=== PATIENT | female | born 1980 | race Caucasian/White ===

== ENCOUNTER 2016-02-20 13:36 | Inpatient (IN) | payer OTHER ==
[~2016-02-20] VITALS: Ht 157.5 cm; Wt 76.1 kg
[2016-02-20] MEDS ORDERED: LACTATED RINGER'S 1,000 ML IV STA (14:39)
[2016-02-20] MEDS ORDERED: TERBUTALINE 1 MG/ML INJ SC PRN (15:00)
--- NOTE | 2016-02-20 15:44 | RADRPT ---
PROCEDURE: US OB CLINICAL INDICATION: UCS, contractions TECHNIQUE: Multiple sonographic images of the pelvis were obtained. The images were reviewed on a PACS workstation. COMPARISON: None FINDINGS: The cervix is closed with a length of 4.6 cm. There is a single viable intrauterine gestation. Cardiac activity is present with 134 beats per minute. There is a vertex presentation. The placenta is posterior. There is no evidence for an abruption or placenta previa. There is a subjectively normal amount of amniotic fluid. Measurements were made in order to determine age. The results are as follows (cm): BPD =6.97 HC =26.00 AC =25.17 FL =5.25 Estimated gestational age by ultrasound of approximately 28 weeks, 3 days. The estimated date of delivery by ultrasound is 05/11/2016. Reported gestational age by LMP of approximately 29 weeks , 5 days. The reported date of delivery by LMP is 05/02/2016. EFW = 1269 grams (10th percentile) IMPRESSION: Single viable intrauterine gestation of approximately 28 weeks, 3 days . The estimated date of delivery is 05/11/2016 . Dating by ultrasound is within 9 days of dating by LMP. Estimated weight is 1269 grams which is in the 10th percentile. RPTAT: EE Physician Daniele Date Time Electronically viewed and signed by Physician Daniele on 02/20/2016 15:44 /
[2016-02-20] MEDS ORDERED: LACTATED RINGER'S 1,000 ML IV SCH (15:45)
[2016-02-20 15:53] LABS: BASOPHIL # 0.1 10^3/ul (0.0-0.1); BASOPHILS % 0.5 % (0.0-2.0); EOSINOPHILS # 0.1 10^3/ul (0.0-0.5); EOSINOPHILS % 0.5 % (0.0-7.0); HEMATOCRIT 36.7 % (37.0-47.0); HEMOGLOBIN 12.4 g/dl (12.0-16.0); LYMPHOCYTES # 3.3 10^3/ul (0.8-2.9); LYMPHOCYTES % 27.4 % (15.0-51.0); MEAN CORPUSCULAR HEMOGLOBIN 31.7 pg (29.0-33.0); MEAN CORPUSCULAR HGB CONC 33.7 g/dl (32.0-37.0); MEAN CORPUSCULAR VOLUME 94.3 fl (82.0-101.0); MEAN PLATELET VOLUME 8.4 fl (7.4-10.4); MONOCYTE # 0.5 10^3/ul (0.3-0.9); NEUTROPHIL # 8.2 10^3/ul (1.6-7.5); NEUTROPHILS % 67.6 % (39.0-77.0); PLATELET COUNT 291 10^3/UL (140-440); RED BLOOD COUNT 3.89 10^6/ul (4.20-5.40); RED CELL DISTRIBUTION WIDTH 13.7 % (11.5-14.5); UNCORRECTED WBC 12.2 10^3/ul (4.8-10.8); WHITE BLOOD COUNT 12.2 10^3/ul (4.8-10.8)
[2016-02-20 15:54] LABS: CONDITION 1
[2016-02-20 16:03] LABS: ADD UMIC NO; URINE BILIRUBIN (Dip) NEGATIVE (NEGATIVE); URINE BLOOD (Dip) NEGATIVE (NEGATIVE); URINE COLOR LT. YELLOW (YELLOW); URINE GLUCOSE (Dip) NEGATIVE (NEGATIVE); URINE KETONES (Dip) 3+ (NEGATIVE); URINE LEUKOCYTE ESTERASE (Dip) NEGATIVE (NEGATIVE); URINE NITRITE (Dip) NEGATIVE (NEGATIVE); URINE TOTAL PROTEIN (Dip) NEGATIVE (NEGATIVE); URINE UROBILINOGEN (Dip) 0.2 E.U./dL (0.1-1.0)
[2016-02-20 17:07] VITALS: Ht 157.5 cm; Wt 76.1 kg
[2016-02-20 17:09] VITALS: BP 104/73; PULSE 88; RESP 19
[2016-02-20] MEDS ORDERED: PRENAT PO (17:11)
[2016-02-20] MEDS ORDERED: FERR325C PO (17:12)
[2016-02-20] MEDS ORDERED: BUTORPHANOL 2 MG INJ IV STA (17:34)
[2016-02-20] MEDS ORDERED: DOCUSATE SODIUM 100 MG CAP PO PRN (20:30)
--- NOTE | 2016-02-20 21:05 | TRIAGE ---
OB Triage Datetime Report Generated by CPN: 02/20/2016 21:05 Datetime: 02/20/2016 20:40 Stage of : OB Triage Labor Evaluation Frequency: 2-11 Monitor Mode: External Duration (sec)2399: 40-60 Quality: Mild Resting Tone [place]: Relaxed Contraction Comments: Irritability noted Heart Rate FHR Baseline Rate: 140 FHR Baseline Changes: No Baseline Change Variability: Moderate 6-25 bpm Accelerations: 15X15 Decelerations: Variable Category: Category I Comments: Appropriate for ga Pain Assessment Pain Scale: 6 Pain Presence: Intermittent Pain Type: Cramping Pain Location: Abdomen; Back Pain Goal: 0 Datetime: 02/20/2016 20:35 Stage of : OB Triage Datetime: 02/20/2016 19:56 Stage of : OB Triage Datetime: 02/20/2016 19:30 Stage of : OB Triage Labor Evaluation Frequency: x6 Monitor Mode: External Duration (sec)2399: 40-50 Quality: Mild Resting Tone [place]: Relaxed Heart Rate FHR Baseline Rate: 130 Monitor Mode: External US FHR Baseline Changes: No Baseline Change Variability: Moderate 6-25 bpm Accelerations: 15X15 Decelerations: Variable Category: Category I Comments: Appropriate for ga Pain Assessment Pain Scale: 5 Pain Presence: Intermittent Pain Type: Cramping Pain Location: Abdomen; Back Pain Goal: 0 Pain Assessment Comments: pt states she is still feeling pain, felt sleepy with medicine, but kept feeling pain Datetime: 02/20/2016 19:28 Stage of : OB Triage Datetime: 02/20/2016 19:26 Stage of : OB Triage Datetime: 02/20/2016 18:30 Stage of : OB Triage Labor Evaluation Frequency: X6 Monitor Mode: External Duration (sec)2399: 40-70 Quality: Mild Resting Tone [place]: Relaxed Heart Rate FHR Baseline Rate: 130 Monitor Mode: External US FHR Baseline Changes: No Baseline Change Variability: Moderate 6-25 bpm Accelerations: 15X15 Decelerations: Variable Category: Category I Datetime: 02/20/2016 17:59 Stage of : OB Triage Datetime: 02/20/2016 17:30 Stage of : OB Triage Labor Evaluation Frequency: x6 Monitor Mode: External Duration (sec)2399: 40-60 Quality: Mild Resting Tone [place]: Relaxed Heart Rate FHR Baseline Rate: 140 Monitor Mode: External US FHR Baseline Changes: No Baseline Change Variability: Moderate 6-25 bpm Accelerations: 15X15 Decelerations: Variable Category: Category I Datetime: 02/20/2016 17:21 Stage of : OB Triage Datetime: 02/20/2016 17:09 Stage of : OB Triage Datetime: 02/20/2016 17:06 Stage of : OB Triage Datetime: 02/20/2016 16:30 Stage of : OB Triage Labor Evaluation Frequency: X5 Monitor Mode: External Duration (sec)2399: 40-50 Quality: Mild Resting Tone [place]: Relaxed Contraction Comments: Irritability noted Heart Rate FHR Baseline Rate: 140 Monitor Mode: External US FHR Baseline Changes: No Baseline Change Variability: Moderate 6-25 bpm Accelerations: 15X15 Decelerations: None Category: Category I Datetime: 02/20/2016 16:06 Stage of : OB Triage Labor Evaluation Frequency: 3-8 Monitor Mode: External Duration (sec)2399: 40-60 Quality: Mild Resting Tone [place]: Relaxed Heart Rate FHR Baseline Rate: 150 Variability: Moderate 6-25 bpm Accelerations: 15X15 Decelerations: Variable Category: Category I Comments: Appropriate for ga Pain Assessment Pain Scale: 6 Pain Presence: Intermittent Pain Type: Cramping Pain Location: Abdomen Pain Assessment Comments: Pt states pain level is unchanged. Datetime: 02/20/2016 15:31 Stage of : OB Triage Datetime: 02/20/2016 15:26 Comments: U/S started Datetime: 02/20/2016 15:20 Stage of : OB Triage Labor Evaluation Frequency: occasional Monitor Mode: External Duration (sec)2399: 40 Quality: Mild Resting Tone [place]: Relaxed Contraction Comments: irritability noted Heart Rate FHR Baseline Rate: 135 Monitor Mode: External US Variability: Moderate 6-25 bpm Accelerations: 15X15 Decelerations: None Category: Category I Datetime: 02/20/2016 15:00 Stage of : OB Triage Labor Evaluation Frequency: x4 Monitor Mode: External Duration (sec)2399: 40 Quality: Mild Resting Tone [place]: Relaxed Contraction Comments: irritability noted Heart Rate FHR Baseline Rate: 135 Variability: Moderate 6-25 bpm Accelerations: 15X15 Decelerations: Variable Category: Category I Datetime: 02/20/2016 14:32 Stage of : OB Triage Datetime: 02/20/2016 14:28 Assessment Type: Triage Maternal Assessment Level of Consciousness: Fully Conscious DTR's/Clonus: DTRs 1+; No Clonus Headache: Denies Blurred Vision: No Respiratory Effort: Unlabored Breath Sounds, Left: Clear and Equal Breath Sounds, Right: Clear and Equal Nausea/Vomiting: Denies RUQ Epigastric Pain: Denies Lower Extremities Edema: None Degree: None Upper Extremities Edema: None Degree: None Facial Edema: None Fall Risk Assessment History of Falling: (0) No Secondary Diagnosis: (15) Yes (Annotations: c/s x 2) Ambulatory Aid: (0) Bedrest/Nurse Assist IV Therapy: (0) No Gait: (0) Normal/Bedrest/Immobile Mental Status: (0) Oriented to Own Ability Fall Score: 15 Fall Risk Score Definition: No Risk: No action required Datetime: 02/20/2016 14:23 Stage of : OB Triage Monitor Mode: External Datetime: 02/20/2016 14:21 Stage of : OB Triage Monitor Mode: External US Datetime: 02/20/2016 13:39 EGA: 29.5 Datetime: 02/20/2016 13:35 Time of Arrival: 02/20/2016 13:30 Arrived By: Wheelchair Arrived From: Office Chief Complaint: Sent from clinic for r/o ptl Movement: Decreased Contractions: Regular Time Contractions Began: 02/19/2016 13:00 Rupture of Membranes: Denies Vaginal Bleeding: None Vaginal Discharge: Denies Recent Sexual Intercouse: Denies Abdominal Trauma: Not Applicable Patient Complaints: Contractions Time Provider Notified: 02/20/2016 13:45 Provider Notified: PAMELLA Initial Plan: VS, EFM, CL, EFW, TERB, IV HYDRATION, UA, CBC
[2016-02-20] MEDS: LACTATED RINGER'S 1,000 ML IV SCH (21:48)
[2016-02-21] MEDS: LACTATED RINGER'S 1,000 ML IV SCH ×4 (05:55→16:35)
[2016-02-21] MEDS: ACETAMINOPHEN 325 MG TAB PO PRN ×2 (08:26→16:35)
[2016-02-21] MEDS ORDERED: MAGNESIUM SULFATE 4 GM/100 ML 100 ML ONE (09:24)
[2016-02-21] MEDS ORDERED: CA GLUCONATE (GM) 10% 10ML INJ IV PRN (09:30)
[2016-02-21] MEDS ORDERED: MAGNESIUM SULFATE 4 GM/100 ML 100 ML IV ONE (09:30)
[2016-02-21] MEDS: MULTIVIT/MIN/FOLATE/IRON/PREN TAB PO SCH (09:39)
[2016-02-21] MEDS: FERROUS SULFATE (EC) 325 MG TAB PO SCH (09:39)
[2016-02-21] MEDS: BETAMET NA PHOS/AC(6 MG/ML) 5ML INJ IM SCH (09:55)
[2016-02-21] MEDS: MAGNESIUM SULFATE 20 GM/500 ML 500 ML IV SCH ×2 (09:56→20:53)
[2016-02-21 10:44] LABS: BASOPHILS % 0.3 % (0.0-2.0); EOSINOPHILS # 0.1 10^3/ul (0.0-0.5); EOSINOPHILS % 0.6 % (0.0-7.0); HEMATOCRIT 34.9 % (37.0-47.0); LYMPHOCYTES # 1.9 10^3/ul (0.8-2.9); LYMPHOCYTES % 18.4 % (15.0-51.0); MEAN CORPUSCULAR HEMOGLOBIN 32.1 pg (29.0-33.0); MEAN CORPUSCULAR HGB CONC 34.3 g/dl (32.0-37.0); MEAN CORPUSCULAR VOLUME 93.6 fl (82.0-101.0); MONOCYTE # 0.5 10^3/ul (0.3-0.9); MONOCYTES % 4.7 % (0.0-11.0); NEUTROPHIL # 7.8 10^3/ul (1.6-7.5); PLATELET COUNT 286 10^3/UL (140-440); RED BLOOD COUNT 3.72 10^6/ul (4.20-5.40); RED CELL DISTRIBUTION WIDTH 13.6 % (11.5-14.5); UNCORRECTED WBC 10.3 10^3/ul (4.8-10.8); WHITE BLOOD COUNT 10.3 10^3/ul (4.8-10.8)
[2016-02-21 10:51] LABS: CONDITION 1
[2016-02-21 10:53] LABS: INR 0.95; PROTIME 12.7 Sec (12.2-14.2)
--- NOTE | 2016-02-21 13:11 | HP ---
Date/Time of Note Date/Time of Note DATE: 02/21/16 TIME: 12:55 OB - History Hx of Present Free Text/Dictation This is a 35 years old Kiswahili female 2 para 2 yariel of 2 previous C- section admitted to [facility] at 29 weeks 57 days with a EDC of May 02 chief complaint of lower abdominal pain and contractions, on admission patient described her pain is constant but later on she is describing her pain as cramping which comes and goes' reviewing her heart tracing and contraction it seems she has some irregular contractions we will admit the patient to rule out labor a neonatology consult and perinatology consult requested. Currently she is on magnesium sulfate 2 gm every hour and close observation for cervical change Estimated Due Date: May 02, 2016 : 3 Para: 2 Care: Limited Care Ultrasounds: Other (not known) Obstetrical Complications: None Medical Complications: None Past Family/Social History * Past Medical, Surgical, Family and Obstetric Histories reviewed from chart. Rubella: immune RPR/VDRL: Negative OB Admission Exam Vital Signs Vital Signs Vital Signs Date Time Temp Pulse Resp B/P Pulse Ox O2 Delivery O2 Flow Rate FiO2 02/20/16 17:09 97.7 88 19 104/73 Last 72 hours Lab Results CBC & BMP 02/20/16 15:05 02/21/16 10:30 KASANDRA CAN MD Feb 21, 2016 13:08
--- NOTE | 2016-02-21 13:55 | PERINOTE ---
Date/Time of Note Date/Time of Note DATE: 02/21/16 TIME: 13:36 Assessment/Recommendations Assessment: labor Recommendations: Would continue with magnesium sulfate for a 24-48 hour course, then D/C Consider urine culture if the patient continues to have pain D/C home if contractions and pain do not recur OB Subjective Free Text/Dictaton Patient is a 35 year old admitted for abdominal pain thought to be due to labor. Patient reports abdominal pain, now reported to be more suprapubic than periumbilical. She states that this is episodic and is similar to her labor pains in prior pregnancies. She reports that the pain is less with magnesium sulfate. HD# 2 IUP @ [id number] Current Medications Current Medications Terbutaline Sulfate (Brethine) 0.25 mg Q30MIN PRN SC UCS Last administered on 02/20/16at 15:05; Admin Dose 0.25 MG; Start 02/20/16 at 15:00 Prenat Multivit/ Desha/Iron/Folic Ac ( S) 1 tab DAILY PO Last administered on 02/21/16at 09:39; Admin Dose 1 TAB; Start 02/21/16 at 09:00 Ferrous Sulfate (Ferrous Sulfate (Ec)) 325 mg DAILY PO Last administered on 09:39; Admin Dose 325 MG; Start 02/21/16 at 09:00 Docusate Sodium (Colace) 100 mg DAILY PRN PO CONSTIPATION; Start 02/20/16 at 20:30 Acetaminophen 650 mg 650 mg Q4H PRN PO PAIN AND OR ELEVATED TEMP Last administered on 02/21/16at 08:26; Admin Dose 650 MG; Start 02/20/16 at 20:30 Lactated Ringer's 1,000 ml @ 75 mls/hr [id number] IV Last administered on 09:39; Admin Dose 75 MLS/HR; Start 02/21/16 at 09:19 Magnesium Sulfate (Magnesium Sulfate 20 Gm/500 ml) 500 ml @ 50 mls/hr Q10H IV Last administered on 02/21/16 09:56; Admin Dose 50 MLS/HR; Start 02/21/16 at 09:19 Betamethasone Acet/Betameth SodPhos (Celestone Soluspan) 12 mg Q24H IM Last administered on 12/31/16at 09:55; Admin Dose 12 MG; Start 02/21/16 at 09:30; Stop 02/22/16 at 09:31 Calcium Gluconate (Ca Gluc) 1 gm ONCE PRN IV FOR MAGNESIUM TOXICITY; Start at 09:30 Past Medical History Medical History: no pertinent history Surgical History: appendectomy SUPPORT SERVICES REP History: no pertinent SUPPORT SERVICES REP history Para: 2 (two deliveries) : 3 LMP (Females 10-50): Family History Significant Family History: diabetes Social History Smoker: non-smoker Alcohol: none Drugs: none OB Admission Exam Physical Exam Vitals: Vital Signs Date Time Temp Pulse Resp B/P Pulse Ox O2 Delivery O2 Flow Rate FiO2 02/20/16 17:09 97.7 88 19 104/73 02/21/16 117 104/65 Heart: Rhythm Normal Lungs: Clear Abdomen: WNL Reflexes: Normal Heart Rate: 130's Accelerations: Accelerations Present Decelerations: No Decelerations Varibility: Moderate Contractions on Admission: None Last 72 hours Lab Results CBC & BMP 02/20/16 15:05 02/21/16 10:30 Copies To: CC: KASANDRA CAN MD, MARIE H MD Feb 21, 2016 13:52
[2016-02-22] MEDS: LACTATED RINGER'S 1,000 ML IV SCH (04:45)
[2016-02-22] MEDS: MAGNESIUM SULFATE 20 GM/500 ML 500 ML IV SCH (06:49)
[2016-02-22] MEDS: ACETAMINOPHEN 325 MG TAB PO PRN ×2 (07:37→11:38)
[2016-02-22] MEDS: FERROUS SULFATE (EC) 325 MG TAB PO SCH (09:45)
[2016-02-22] MEDS: MULTIVIT/MIN/FOLATE/IRON/PREN TAB PO SCH (09:45)
[2016-02-22] MEDS: BETAMET NA PHOS/AC(6 MG/ML) 5ML INJ IM SCH (09:46)
[2016-02-22] MEDS ORDERED: AZITHROMYCIN 250 MG TAB PO ONE (14:30)
--- NOTE | 2016-02-22 14:30 | PN ---
Date/Time of Note Date/Time of Note DATE: 02/22/16 TIME: 14:16 OB Subjective Subjective Subjective Afebrile vital sign is stable no more uterine contraction noted magnesium sulfate stopped she has been complaining of frontal headache suspected sinusitis pain resolves with Tylenol , magnesium sulfate stopped, amoxicillin 500 mg 3 times a day starting today KASANDRA CAN MD Feb 22, 2016 14:30
[2016-02-22] MEDS: AMOXICILLIN 500 MG CAP PO SCH ×2 (15:50→18:00)
[2016-02-23] MEDS: AMOXICILLIN 500 MG CAP PO SCH ×3 (00:16→12:35)
[2016-02-23] MEDS ORDERED: AZITHROMYCIN 250 MG TAB PO SCH (09:00)
[2016-02-23] MEDS: MULTIVIT/MIN/FOLATE/IRON/PREN TAB PO SCH (09:16)
[2016-02-23] MEDS: FERROUS SULFATE (EC) 325 MG TAB PO SCH (09:16)
--- NOTE | 2016-02-23 14:21 | DS ---
Date/Time of Note Date/Time of Note DATE: 02/23/16 TIME: 14:12 Obstetrical Discharge Record Final Diagnosis Final Diagnosis: not delivered Complications Labor Augmentation: No Induction: No Tocolytics: Magnesium Sulfate Rupture of Membranes: No Condition on Discharge Physical Assessment Last Vitals: 35 years old female who was admitted for possible labor with a history of 2 previous and complain of headache on admission laborist on-call suspected possible PIH started her on magnesium sulfate but later on all the workup for PIH was negative magnesium sulfate discontinued patient received steroids, no more contraction or uterine irritability, see perinatology report at this time patient has no complain of headache or uterine contraction she is being discharged home with recommendation of follow-up at the clinic in 3-4 days Current Medications Medications (Trade) Dose Ordered Sig/Alejandro Route PRN Reason Start Time Stop Time Status Last Admin Dose Admin Terbutaline Sulfate 0.25 mg 0.25 mg Q30MIN PRN SC UCS 02/20/16 15:00 02/20/16 15:05 Lactated Ringer's 1,000 ml @ 1,000 mls/hr Q1H STAT IV 02/20/16 14:39 02/20/16 15:38 DC 02/20/16 15:07 Lactated Ringer's (Lr) 1,000 ml @ 125 mls/hr Q8H IV 02/20/16 15:45 02/20/16 20:25 DC 02/20/16 16:07 Butorphanol Tartrate 2 mg 2 mg ONCE STAT IV 02/20/16 17:34 02/20/16 17:37 DC 02/20/16 17:53 Lactated Ringer's (Lr) 1,000 ml @ 125 mls/hr Q8H IV 02/20/16 20:16 02/21/16 13:07 DC 02/21/16 05:55 Prenat Multivit/ Stitcher Standard Machine/Iron/Folic Ac ( S) 1 tab DAILY PO 02/21/16 09:00 02/23/16 09:16 Ferrous Sulfate (Ferrous Sulfate (Ec)) 325 mg DAILY PO 02/21/16 09:00 02/23/16 09:16 Docusate Sodium (Colace) 100 mg DAILY PRN PO CONSTIPATION 02/20/16 20:30 Acetaminophen 650 mg 650 mg Q4H PRN PO PAIN AND OR ELEVATED TEMP 02/20/16 20:30 02/22/16 11:38 Lactated Ringer's 1,000 ml @ 75 mls/hr [id number] IV 02/21/16 09:19 02/22/16 14:52 DC 02/22/16 04:45 Magnesium Sulfate 100 ml @ 200 mls/hr ONCE ONCE IV 02/21/16 09:30 02/21/16 09:59 DC 02/21/16 09:39 Magnesium Sulfate (Magnesium Sulfate 20 Gm/500 ml) 500 ml @ 50 mls/hr Q10H IV 02/21/16 09:19 02/22/16 14:11 DC 02/22/16 06:49 Betamethasone Acet/Betameth SodPhos (Celestone Soluspan) 12 mg Q24H IM 02/21/16 09:30 02/22/16 09:31 DC 02/22/16 09:46 Calcium Gluconate 1 gm 1 gm ONCE PRN IV FOR MAGNESIUM TOXICITY 02/21/16 09:30 Magnesium Sulfate (Magnesium Sulfate 4 Gm/100 ml) 100 ml @ ud STK-MED ONCE .ROUTE 02/21/16 09:24 02/21/16 09:25 DC Azithromycin (Zithromax) 500 mg ONCE ONCE PO 02/22/16 14:30 02/22/16 14:31 DC 02/22/16 15:50 Azithromycin (Zithromax) 250 mg DAILY PO 02/23/16 09:00 02/23/16 09:16 Amoxicillin (Amoxicillin) 500 mg Q6 PO 02/22/16 15:00 02/23/16 12:35 Voiding: Yes Bowel Movement: Yes Breast: Soft, non-tender Calf Tenderness: No Patient Condition: Good KASANDRA CAN MD Feb 23, 2016 14:21
--- NOTE | 2016-02-23 14:26 | PD.PPDC ---
DIRECTOR OF DIGITAL PLATFORMS Discharge Instruction Condition Patient Condition: Good Diet Diet: Resume Regular Diet Activity/Restrictions Activity: Bedrest May be up to bathroom May be up for meals May Shower Restrictions: No Exercising No Lifting No Driving No Sexual Activity Nothing in the Vagina No [place] No Tampons, douche Follow-up Follow-up with Physician: 3, Day/Days Return to clinic for OB Instructions: Headache KASANDRA CAN MD Feb 23, 2016 14:26
== END 2016-02-23 15:06 | disposition home or self-care (01) | DRG 780 ==
LOC: OBT 13:36 → L-D 13:37 → OBG 20:00 → OBT 20:00
PROVIDERS: ADMIT Obstetrics & Gynecology; ATTEND Obstetrics & Gynecology
DX: O47.03 False labor before 37 completed weeks of gestation, third trimester (principal); O09.523 Supervision of elderly multigravida, third trimester; Z3A.29 29 weeks gestation of pregnancy
CPT/HCPCS: 36415; 76815; 76817; 81003; 83735; 85025; 85610; 85730; 86592; 86900; 86901; 87086; 96360; 96361; 96372; 96375; G0463; J0702; J3105; J3475; J7120

== ENCOUNTER 2016-03-22 14:02 | Outpatient (CLI) | payer OTHER ==
[~2016-03-22] VITALS: Ht 160 cm; Wt 78.2 kg
[~2016-03-22 14:02] MED LIST: FERR325C PO; PRENAT PO
[2016-03-22 14:22] VITALS: BP 118/61; PULSE 95; RESP 18; Ht 160 cm; Wt 78.2 kg
--- NOTE | 2016-03-22 15:51 | RADRPT ---
PROCEDURE: US OB. CLINICAL INDICATION: Size and dates , labor TECHNIQUE: Multiple sonographic images of the pelvis and gravid uterus were obtained. The images were reviewed on a PACS workstation. COMPARISON: 02/20/2016 FINDINGS: There is a single viable intrauterine gestation. Cardiac activity is present with 143 beats per min cristel. There is a breech presentation. The placenta is posterior. There is no evidence for an abruption or placenta previa. Measurements were made in order to determine age. The results are as follows: BPD =8.3 cm HC =31 cm AC =29.6 cm FL =6.5 cm Estimated gestational age of approximately 33 weeks and 6 days based on ultrasound measurements. Clinical age: 34 weeks and 1 day. The estimated date of delivery is 05/04/16, based on ultrasound measurements. The EFW = 2250 g, 30.3%, based on LMP age. RPTAT: AA IMPRESSION: Single viable intrauterine gestation of approximately 33 weeks and 6 days based on ultrasound measu rements. .Ian Porter MD, Date Time Electronically viewed and signed by .Ian Porter MD, on 03/22/2016 15:41 .S/
--- NOTE | 2016-03-22 15:54 | RADRPT ---
PROCEDURE: OB ultrasound for biophysical profile CLINICAL INDICATION: labor. Biophysical profile. . TECHNIQUE: Multiple sonographic images of the pelvis were obtained. Transabdominal view of the gr avid uterus are available for review. The images were reviewed on a PACS workstation. COMPARISON: None FINDINGS: breathing movement = 2/2 tone = 2/2 motion = 2/2 YOLI = 2/2 Single intrauterine gestation is identified in breech position. heart rate is 136 bpm. Placen ta is posterior without evidence for abruption or previa. YOLI measures 14.4 cm, within normal limit s. IMPRESSION: 1. Single live intrauterine gestation. 2. Biophysical profile = 8/8. 3. YOLI = 14.4 cm. 4. Breech presentation. RPTAT: GG .aKrl Malik MD, Date Time Electronically viewed and signed by .Karl Malik MD, on 03/22/2016 15:53 .R/
[2016-03-22 16:02] LABS: ADD UMIC YES; URINE BILIRUBIN (Dip) NEGATIVE (NEGATIVE); URINE BLOOD (Dip) NEGATIVE (NEGATIVE); URINE COLOR YELLOW (YELLOW); URINE GLUCOSE (Dip) NEGATIVE (NEGATIVE); URINE KETONES (Dip) 15 (NEGATIVE); URINE LEUKOCYTE ESTERASE (Dip) TRACE (NEGATIVE); URINE NITRITE (Dip) NEGATIVE (NEGATIVE); URINE TOTAL PROTEIN (Dip) NEGATIVE (NEGATIVE); URINE UROBILINOGEN (Dip) 0.2 E.U./dL (0.1-1.0)
[2016-03-22 16:15] LABS: BACTERIA,URINE MANY; SQUAMOUS EPITHELIAL CELL,UR MANY; URINE RBCS 0-2 /HPF (0)
[2016-03-22] MEDS ORDERED: TERBUTALINE 1 MG/ML INJ SC ONE (18:00)
[2016-03-22] MEDS ORDERED: LACTATED RINGER'S 1,000 ML IV* STA (18:09)
--- NOTE | 2016-03-22 21:41 | TRIAGE ---
OB Triage Datetime Report Generated by CPN: 03/22/2016 21:39 Datetime: 03/22/2016 19:00 Stage of : OB Triage Labor Evaluation Frequency: 0 Monitor Mode: External Duration (sec)2399: 0 Resting Tone [place]: Relaxed Heart Rate FHR Baseline Rate: 150 Monitor Mode: External US FHR Baseline Changes: No Baseline Change Variability: Moderate 6-25 bpm Accelerations: 10X10 Decelerations: None Category: Category I Pain Assessment Pain Scale: 0 Pain Presence: None/Denies Pain Type: N/A Pain Goal: 0 Pain Relief Measures: Pain Medication Given Membrane Status: Intact Datetime: 03/22/2016 18:56 Labor Evaluation Frequency: 0 Monitor Mode: External Duration (sec)2399: 0 Pattern: Normal: <= 5 Contractions in 10 Minutes Resting Tone [place]: Relaxed Heart Rate FHR Baseline Rate: 150 Monitor Mode: External US FHR Baseline Changes: No Baseline Change Variability: Moderate 6-25 bpm Accelerations: 15X15 Decelerations: None Category: Category I Membrane Status: Intact Datetime: 03/22/2016 17:48 Labor Evaluation Frequency: 0 Monitor Mode: External Duration (sec)2399: 0 Resting Tone [place]: Relaxed Heart Rate FHR Baseline Rate: 120 Monitor Mode: External US FHR Baseline Changes: No Baseline Change Variability: Absent - Undetectable Accelerations: 15X15 Decelerations: None Category: Category I Membrane Status: Intact Datetime: 03/22/2016 17:23 Labor Evaluation Frequency: IRRIATABILITY Monitor Mode: External Duration (sec)2399: 50-60 Resting Tone [place]: Relaxed Heart Rate FHR Baseline Rate: 135 Monitor Mode: External US FHR Baseline Changes: No Baseline Change Variability: Moderate 6-25 bpm Accelerations: 15X15 Decelerations: None Category: Category I Membrane Status: Intact Datetime: 03/22/2016 17:04 Stage of : OB Triage Vaginal Exam Dilatation (cms): 0.0 Effacement (%): 50 Station: -3 Exam By: DR CAN Vaginal Bleeding: None Cervix, Consistency: Firm Cervix, Position: Posterior Presentation 'A': Unable to Assess Lie 'A': Unable to Assess Datetime: 03/22/2016 16:35 Labor Evaluation Frequency: X2 Monitor Mode: External Duration (sec)2399: 50-60 Quality: Mild Pattern: Normal: <= 5 Contractions in 10 Minutes Resting Tone [place]: Relaxed Heart Rate FHR Baseline Rate: 135 Monitor Mode: External US FHR Baseline Changes: No Baseline Change Variability: Moderate 6-25 bpm Accelerations: 15X15 Decelerations: None Category: Category I Datetime: 03/22/2016 16:04 Labor Evaluation Frequency: 0 Monitor Mode: External Duration (sec)2399: 0 Resting Tone [place]: Relaxed Heart Rate FHR Baseline Rate: 120 Monitor Mode: External US FHR Baseline Changes: No Baseline Change Variability: Moderate 6-25 bpm Accelerations: 15X15 Decelerations: None Category: Category I Datetime: 03/22/2016 16:00 Heart Rate FHR Baseline Rate: 130 Monitor Mode: External US FHR Baseline Changes: No Baseline Change Variability: Moderate 6-25 bpm Accelerations: 15X15 Decelerations: None Category: Category I Datetime: 03/22/2016 15:13 Labor Evaluation Frequency: 0 Monitor Mode: External Duration (sec)2399: 0 Resting Tone [place]: Relaxed Heart Rate FHR Baseline Rate: 145 Monitor Mode: External US FHR Baseline Changes: No Baseline Change Variability: Moderate 6-25 bpm Accelerations: 15X15 Decelerations: None Category: Category I Datetime: 03/22/2016 14:45 Labor Evaluation Frequency: 0 Monitor Mode: External Duration (sec)2399: 0 Resting Tone [place]: Relaxed Heart Rate FHR Baseline Rate: 130 Monitor Mode: External US FHR Baseline Changes: No Baseline Change Variability: Moderate 6-25 bpm Accelerations: 15X15 Decelerations: None Category: Category I Datetime: 03/22/2016 14:15 Time of Arrival: 03/22/2016 14:15 EGA: 34.1 Arrived By: Ambulatory Arrived From: Office Chief Complaint: R/O PTL Movement: Present Contractions: Irregular Time Contractions Began: 03/21/2016 23:00 Contractions: 5-7 Rupture of Membranes: Denies Vaginal Bleeding: None Vaginal Discharge: Denies Recent Sexual Intercouse: Denies Abdominal Trauma: Not Applicable Patient Complaints: Contractions Additional Patient Complaints: REPEAT C/S X2 Time Provider Notified: 03/22/2016 14:16 Provider Notified: PAMELLA Datetime: 02/23/2016 14:00 Labor Evaluation Frequency: NONE Monitor Mode: External Pattern: Normal: <= 5 Contractions in 10 Minutes Resting Tone [place]: Relaxed Heart Rate FHR Baseline Rate: 140 Monitor Mode: External US FHR Baseline Changes: No Baseline Change Variability: Moderate 6-25 bpm Accelerations: 10X10 Decelerations: None Category: Category I Datetime: 02/23/2016 13:01 Labor Evaluation Frequency: NONE Monitor Mode: External Pattern: Normal: <= 5 Contractions in 10 Minutes Resting Tone [place]: Relaxed Heart Rate FHR Baseline Rate: 140 Monitor Mode: External US FHR Baseline Changes: No Baseline Change Variability: Moderate 6-25 bpm Accelerations: 10X10 Decelerations: None Category: Category I Datetime: 02/23/2016 12:00 Labor Evaluation Frequency: NONE Monitor Mode: External Pattern: Normal: <= 5 Contractions in 10 Minutes Resting Tone [place]: Relaxed Heart Rate FHR Baseline Rate: 140 Monitor Mode: External US FHR Baseline Changes: No Baseline Change Variability: Moderate 6-25 bpm Accelerations: 10X10 Decelerations: None Category: Category I Datetime: 02/23/2016 11:39 Comments: RECORDING MATERNAL HR. PT HAS A PULSE OX ON THAT SHOWS HR IN THE 90'S-110. MONITOR NOT SHOWING TRACING OF HR IN THE COMPUTER BUT IT IS SHOWING ON THE PRINT OUT ON THE PAPER. IHSAN BELL RN CONFIRMED THE READING AND CONFIRMED IT IS MATERNAL HR. Datetime: 02/23/2016 11:00 Labor Evaluation Frequency: NONE Monitor Mode: External Pattern: Normal: <= 5 Contractions in 10 Minutes Resting Tone [place]: Relaxed Heart Rate FHR Baseline Rate: 140 Monitor Mode: External US FHR Baseline Changes: No Baseline Change Variability: Moderate 6-25 bpm Accelerations: 10X10 Decelerations: None Category: Category I Datetime: 02/23/2016 10:00 Labor Evaluation Frequency: NONE Monitor Mode: External Pattern: Normal: <= 5 Contractions in 10 Minutes Resting Tone [place]: Relaxed Heart Rate FHR Baseline Rate: 140 Monitor Mode: External US FHR Baseline Changes: No Baseline Change Variability: Moderate 6-25 bpm Accelerations: 10X10 Decelerations: None Category: Category I Datetime: 02/23/2016 09:14 Pain Assessment Pain Scale: 0 Pain Presence: None/Denies Pain Type: N/A Pain Goal: 2 Datetime: 02/23/2016 09:00 Labor Evaluation Frequency: NONE Monitor Mode: External Pattern: Normal: <= 5 Contractions in 10 Minutes Resting Tone [place]: Relaxed Heart Rate FHR Baseline Rate: 140 Monitor Mode: External US FHR Baseline Changes: No Baseline Change Variability: Moderate 6-25 bpm Accelerations: 10X10 Decelerations: Variable Category: Category II Pain Assessment Pain Scale: 0 Pain Goal: 2 Pain Assessment Comments: PT DENIES FEELING ANY UCS Datetime: 02/23/2016 08:49 Stage of : Antepartum Temperature Route: Oral Datetime: 02/23/2016 08:20 Assessment Type: Ongoing Assessment Maternal Assessment Level of Consciousness: Fully Conscious DTR's/Clonus: DTRs 2+; No Clonus Headache: Denies Blurred Vision: No Respiratory Effort: Unlabored; Regular Rhythm; Equal Expansion Breath Sounds, Left: Clear and Equal Breath Sounds, Right: Clear and Equal Nausea/Vomiting: Denies RUQ Epigastric Pain: Denies Lower Extremities Edema: None Upper Extremities Edema: None Facial Edema: None Fall Risk Assessment History of Falling: (0) No Secondary Diagnosis: (0) No Ambulatory Aid: (0) Bedrest/Nurse Assist IV Therapy: (0) No Gait: (0) Normal/Bedrest/Immobile Mental Status: (0) Oriented to Own Ability Fall Score: 0 Fall Risk Score Definition: No Risk: No action required Datetime: 02/23/2016 08:00 Labor Evaluation Frequency: NONE Monitor Mode: External Pattern: Normal: <= 5 Contractions in 10 Minutes Resting Tone [place]: Relaxed Heart Rate FHR Baseline Rate: 135 FHR Baseline Changes: No Baseline Change Variability: Moderate 6-25 bpm Accelerations: 10X10 Decelerations: None Category: Category I Pain Assessment Pain Scale: 0 Pain Presence: None/Denies Pain Type: N/A Pain Goal: 2 Datetime: 02/23/2016 06:45 Stage of : Antepartum Labor Evaluation Frequency: NONE Monitor Mode: External Heart Rate FHR Baseline Rate: 140 Monitor Mode: External US Variability: Moderate 6-25 bpm Accelerations: 15X15 Decelerations: None Pain Assessment Pain Scale: 0 Pain Presence: None/Denies Pain Type: N/A Pain Goal: 3 Datetime: 02/23/2016 05:45 Stage of : Antepartum Labor Evaluation Frequency: NONE Monitor Mode: External Heart Rate FHR Baseline Rate: 140 Monitor Mode: External US Variability: Moderate 6-25 bpm Accelerations: 15X15 Decelerations: None Pain Assessment Pain Scale: 0 Pain Presence: None/Denies Pain Type: N/A Pain Goal: 3 Datetime: 02/23/2016 04:45 Stage of : Antepartum Labor Evaluation Frequency: NONE Monitor Mode: External Heart Rate FHR Baseline Rate: 140 Monitor Mode: External US Variability: Moderate 6-25 bpm Accelerations: 15X15 Decelerations: None Pain Assessment Pain Scale: 0 Pain Presence: None/Denies Pain Type: N/A Pain Goal: 3 Datetime: 02/23/2016 03:45 Stage of : Antepartum Labor Evaluation Frequency: NONE Monitor Mode: External Heart Rate FHR Baseline Rate: 135 Monitor Mode: External US Variability: Moderate 6-25 bpm Accelerations: 15X15 Decelerations: None Pain Assessment Pain Scale: 0 Pain Presence: None/Denies Pain Type: N/A Pain Goal: 3 Datetime: 02/23/2016 02:45 Stage of : Antepartum Labor Evaluation Frequency: NONE Monitor Mode: External Heart Rate FHR Baseline Rate: 135 Monitor Mode: External US Variability: Moderate 6-25 bpm Accelerations: 15X15 Decelerations: None Pain Assessment Pain Scale: 0 Pain Presence: None/Denies Pain Type: N/A Pain Goal: 3 Datetime: 02/23/2016 01:45 Stage of : Antepartum Labor Evaluation Frequency: NONE Monitor Mode: External Heart Rate FHR Baseline Rate: 140 Monitor Mode: External US Variability: Moderate 6-25 bpm Accelerations: 15X15 Decelerations: None Pain Assessment Pain Scale: 0 Pain Presence: None/Denies Pain Type: N/A Pain Goal: 3 Datetime: 02/23/2016 00:45 Stage of : Antepartum Labor Evaluation Frequency: NONE Monitor Mode: External Heart Rate FHR Baseline Rate: 140 Monitor Mode: External US Variability: Moderate 6-25 bpm Accelerations: 15X15 Decelerations: None Pain Assessment Pain Scale: 0 Pain Presence: None/Denies Pain Type: N/A Pain Goal: 3 Datetime: 02/23/2016 00:17 Stage of : Antepartum Datetime: 02/22/2016 23:45 Stage of : Antepartum Labor Evaluation Frequency: NONE Monitor Mode: External Heart Rate FHR Baseline Rate: 145 Monitor Mode: External US Variability: Moderate 6-25 bpm Accelerations: 15X15 Decelerations: None Pain Assessment Pain Scale: 0 Pain Presence: None/Denies Pain Type: N/A Pain Goal: 3 Datetime: 02/22/2016 22:45 Stage of : Antepartum Labor Evaluation Frequency: NONE Monitor Mode: External Heart Rate FHR Baseline Rate: 145 Monitor Mode: External US Variability: Moderate 6-25 bpm Accelerations: 15X15 Decelerations: None Pain Assessment Pain Scale: 0 Pain Presence: None/Denies Pain Type: N/A Pain Goal: 3 Datetime: 02/22/2016 21:45 Stage of : Antepartum Labor Evaluation Frequency: NONE Monitor Mode: External Contraction Comments: PT STATES SHE FELT PAIN IN HER ABDOMEN ONE TIME Heart Rate FHR Baseline Rate: 145 Monitor Mode: External US Variability: Moderate 6-25 bpm Accelerations: 15X15 Decelerations: None Pain Assessment Pain Scale: 0 Pain Presence: None/Denies Pain Type: N/A Pain Goal: 3 Datetime: 02/22/2016 20:45 Stage of : Antepartum Labor Evaluation Frequency: NONE Monitor Mode: External Heart Rate FHR Baseline Rate: 145 Monitor Mode: External US Variability: Moderate 6-25 bpm Accelerations: 15X15 Decelerations: None Pain Assessment Pain Scale: 0 Pain Presence: None/Denies Pain Type: N/A Pain Goal: 3 Datetime: 02/22/2016 19:45 Stage of : Antepartum Temperature Route: Oral Labor Evaluation Frequency: NONE Monitor Mode: External Contraction Comments: PT DENIES FEELING ANY CONTRACTIONS Heart Rate FHR Baseline Rate: 145 Monitor Mode: External US Variability: Moderate 6-25 bpm Accelerations: 15X15 Decelerations: None Category: Category I Pain Assessment Pain Scale: 0 Pain Presence: None/Denies Pain Type: N/A Pain Goal: 3 Datetime: 02/22/2016 19:42 Assessment Type: Ongoing Assessment Maternal Assessment Level of Consciousness: Fully Conscious DTR's/Clonus: DTRs 2+; No Clonus Headache: Denies Blurred Vision: No Respiratory Effort: Unlabored; Regular Rhythm; Equal Expansion Breath Sounds, Left: Clear and Equal Breath Sounds, Right: Clear and Equal Nausea/Vomiting: Denies RUQ Epigastric Pain: Denies Lower Extremities Edema: None Degree: None Upper Extremities Edema: None Degree: None Facial Edema: None Fall Risk Assessment History of Falling: (0) No Secondary Diagnosis: (0) No Ambulatory Aid: (0) Bedrest/Nurse Assist IV Therapy: (0) No Gait: (0) Normal/Bedrest/Immobile Mental Status: (0) Oriented to Own Ability Fall Score: 0 Fall Risk Score Definition: No Risk: No action required Datetime: 02/22/2016 18:51 Labor Evaluation Frequency: 0 Monitor Mode: External Duration (sec)2399: 0 Pattern: Normal: <= 5 Contractions in 10 Minutes Heart Rate FHR Baseline Rate: 140 Monitor Mode: External US FHR Baseline Changes: No Baseline Change Variability: Moderate 6-25 bpm Accelerations: 15X15 Decelerations: None Category: Category I Datetime: 02/22/2016 17:55 Pain Presence: None/Denies Pain Type: N/A Datetime: 02/22/2016 16:59 Labor Evaluation Frequency: 0 Monitor Mode: External Duration (sec)2399: 0 Pattern: Normal: <= 5 Contractions in 10 Minutes Contraction Comments: DENIES ANY UC'S AT THIS TIME Heart Rate FHR Baseline Rate: 130 Monitor Mode: External US FHR Baseline Changes: No Baseline Change Variability: Moderate 6-25 bpm Accelerations: 15X15 Decelerations: None Category: Category I Datetime: 02/22/2016 15:55 Labor Evaluation Frequency: 0 Monitor Mode: External Duration (sec)2399: 0 Pattern: Normal: <= 5 Contractions in 10 Minutes Contraction Comments: DENIES ANY UC'S Heart Rate FHR Baseline Rate: 135 Monitor Mode: External US FHR Baseline Changes: No Baseline Change Variability: Moderate 6-25 bpm Accelerations: 15X15 Decelerations: None Category: Category I Datetime: 02/22/2016 15:00 Labor Evaluation Frequency: 0 Duration (sec)2399: 0 Pattern: Normal: <= 5 Contractions in 10 Minutes Resting Tone [place]: Relaxed Heart Rate FHR Baseline Rate: 135 Monitor Mode: External US FHR Baseline Changes: No Baseline Change Variability: Moderate 6-25 bpm Accelerations: 15X15 Decelerations: None Category: Category I Datetime: 02/22/2016 13:59 Labor Evaluation Frequency: 0 Duration (sec)2399: 0 Pattern: Normal: <= 5 Contractions in 10 Minutes Resting Tone [place]: Relaxed Heart Rate FHR Baseline Rate: 130 Monitor Mode: External US FHR Baseline Changes: No Baseline Change Variability: Moderate 6-25 bpm Accelerations: 15X15 Decelerations: None Category: Category I Datetime: 02/22/2016 13:30 Labor Evaluation Frequency: 0 Monitor Mode: External Duration (sec)2399: 0 Pattern: Normal: <= 5 Contractions in 10 Minutes Resting Tone [place]: Relaxed Heart Rate FHR Baseline Rate: 130 Monitor Mode: External US FHR Baseline Changes: No Baseline Change Variability: Moderate 6-25 bpm Accelerations: 15X15 Decelerations: None Category: Category I Datetime: 02/22/2016 13:09 Pain Presence: None/Denies Pain Type: N/A Datetime: 02/22/2016 12:59 Labor Evaluation Frequency: 0 Monitor Mode: External Duration (sec)2399: 0 Pattern: Normal: <= 5 Contractions in 10 Minutes Heart Rate FHR Baseline Rate: 130 Monitor Mode: External US FHR Baseline Changes: No Baseline Change Variability: Moderate 6-25 bpm Accelerations: 15X15 Decelerations: None Category: Category I Datetime: 02/22/2016 12:29 Labor Evaluation Frequency: 0 Monitor Mode: External Duration (sec)2399: 0 Pattern: Normal: <= 5 Contractions in 10 Minutes Resting Tone [place]: Relaxed Contraction Comments: DENIES FEELING ANY UC'S Heart Rate FHR Baseline Rate: 130 Monitor Mode: External US FHR Baseline Changes: No Baseline Change Variability: Moderate 6-25 bpm Accelerations: 15X15 Decelerations: None Category: Category I Datetime: 02/22/2016 11:57 Maternal Assessment Level of Consciousness: Fully Conscious DTR's/Clonus: DTRs 2+; No Clonus Headache: Generalized Blurred Vision: No Respiratory Effort: Unlabored Breath Sounds, Left: Clear and Equal Breath Sounds, Right: Clear and Equal Nausea/Vomiting: Denies RUQ Epigastric Pain: Denies Facial Edema: None Labor Evaluation Frequency: 0 Monitor Mode: External Duration (sec)2399: 0 Pattern: Normal: <= 5 Contractions in 10 Minutes Resting Tone [place]: Relaxed Contraction Comments: DENIES FEELING ANY UC'S. ABODMEN SOFT TO PALPATION Heart Rate FHR Baseline Rate: 130 Monitor Mode: External US FHR Baseline Changes: No Baseline Change Variability: Moderate 6-25 bpm Accelerations: 15X15 Decelerations: None Category: Category I Pain Assessment Pain Scale: 4 Pain Type: Ache Pain Location: Head Pain Goal: 0 Pain Relief Measures: Pain Medication Given Datetime: 02/22/2016 11:29 Labor Evaluation Frequency: 0 Monitor Mode: External Duration (sec)2399: 0 Pattern: Normal: <= 5 Contractions in 10 Minutes Heart Rate FHR Baseline Rate: 130 Datetime: 02/22/2016 10:43 Comments: PT DOES NOT WANT TO BE DISTURBED AT THIS TIME. U/S ADJUSTED. AUDIBLE FHT'S UN THE 130'S Datetime: 02/22/2016 10:39 Comments: PT SLEEPING. Datetime: 02/22/2016 10:29 Labor Evaluation Frequency: 0 Monitor Mode: External Duration (sec)2399: 0 Pattern: Normal: <= 5 Contractions in 10 Minutes Resting Tone [place]: Relaxed Heart Rate FHR Baseline Rate: 130 Monitor Mode: External US FHR Baseline Changes: No Baseline Change Variability: Moderate 6-25 bpm Accelerations: 15X15 Decelerations: None Category: Category I Datetime: 02/22/2016 09:57 Maternal Assessment Level of Consciousness: Fully Conscious DTR's/Clonus: DTRs 2+; No Clonus Headache: Denies Blurred Vision: No Respiratory Effort: Unlabored Breath Sounds, Left: Clear and Equal Breath Sounds, Right: Clear and Equal Nausea/Vomiting: Denies RUQ Epigastric Pain: Denies Facial Edema: None Labor Evaluation Frequency: 0 Monitor Mode: External Duration (sec)2399: 0 Pattern: Normal: <= 5 Contractions in 10 Minutes Resting Tone [place]: Relaxed Contraction Comments: DENIES FEELING ANY PAIN OR DISCOMFORT AT THIS TIME Heart Rate FHR Baseline Rate: 130 Monitor Mode: External US FHR Baseline Changes: No Baseline Change Variability: Moderate 6-25 bpm Accelerations: 10X10 Decelerations: None Category: Category I Pain Assessment Pain Scale: 0 Pain Assessment Comments: STATES TYLENOL EFFECTIVE FOR HEADACHE Datetime: 02/22/2016 09:30 Labor Evaluation Frequency: 0 Monitor Mode: External Duration (sec)2399: 0 Pattern: Normal: <= 5 Contractions in 10 Minutes Resting Tone [place]: Relaxed Heart Rate FHR Baseline Rate: 130 Monitor Mode: External US FHR Baseline Changes: No Baseline Change Variability: Moderate 6-25 bpm Accelerations: 10X10 Decelerations: None Category: Category I Datetime: 02/22/2016 09:00 Labor Evaluation Frequency: ONE NOTED IN 30 MIN Monitor Mode: External Duration (sec)2399: 70 Pattern: Normal: <= 5 Contractions in 10 Minutes Resting Tone [place]: Relaxed Contraction Comments: PT SITTING UP IN BED EATING BREAKFAST Heart Rate FHR Baseline Rate: 130 Monitor Mode: External US FHR Baseline Changes: No Baseline Change Variability: Moderate 6-25 bpm Accelerations: 15X15 Decelerations: None Category: Category I Datetime: 02/22/2016 08:29 Labor Evaluation Frequency: 0 Monitor Mode: External Duration (sec)2399: 0 Pattern: Normal: <= 5 Contractions in 10 Minutes Resting Tone [place]: Relaxed Heart Rate FHR Baseline Rate: 130 Monitor Mode: External US FHR Baseline Changes: No Baseline Change Variability: Moderate 6-25 bpm Accelerations: 15X15 Decelerations: None Category: Category I Datetime: 02/22/2016 07:59 Labor Evaluation Frequency: 0 Monitor Mode: External Duration (sec)2399: 0 Pattern: Normal: <= 5 Contractions in 10 Minutes Resting Tone [place]: Relaxed Contraction Comments: DENIES ANY UC'S Contraction Comments: DENIES ANY UC'S. ABDOMEN SOFT TO PALPATION Heart Rate FHR Baseline Rate: 130 Monitor Mode: External US FHR Baseline Changes: No Baseline Change Variability: Moderate 6-25 bpm Accelerations: 15X15 Decelerations: None Category: Category I Datetime: 02/22/2016 07:43 Assessment Type: Ongoing Assessment Maternal Assessment Level of Consciousness: Fully Conscious DTR's/Clonus: DTRs 2+; No Clonus Headache: Generalized (Annotations: STATES 3 OUT OF 10) Blurred Vision: No Respiratory Effort: Unlabored Breath Sounds, Left: Clear and Equal Breath Sounds, Right: Clear and Equal Nausea/Vomiting: Denies RUQ Epigastric Pain: Denies Lower Extremities Edema: None Degree: None Upper Extremities Edema: None Degree: None Facial Edema: None Fall Risk Assessment History of Falling: (0) No Secondary Diagnosis: (0) No Ambulatory Aid: (0) Bedrest/Nurse Assist IV Therapy: (0) No Gait: (0) Normal/Bedrest/Immobile Mental Status: (0) Oriented to Own Ability Fall Score: 0 Fall Risk Score Definition: No Risk: No action required Datetime: 02/22/2016 07:29 Labor Evaluation Frequency: 0 Monitor Mode: External Duration (sec)2399: 0 Pattern: Normal: <= 5 Contractions in 10 Minutes Contraction Comments: D Heart Rate FHR Baseline Rate: 125 Monitor Mode: External US FHR Baseline Changes: No Baseline Change Variability: Moderate 6-25 bpm Accelerations: 15X15 Decelerations: None Category: Category I Datetime: 02/22/2016 06:58 Labor Evaluation Frequency: OCCASIONAL Monitor Mode: External Duration (sec)2399: 30-40 Quality: Mild Pattern: Normal: <= 5 Contractions in 10 Minutes Resting Tone [place]: Relaxed Heart Rate FHR Baseline Rate: 135 Monitor Mode: External US Variability: Moderate 6-25 bpm Accelerations: 15X15 Decelerations: None Category: Category I Pain Assessment Pain Scale: 0 Pain Presence: None/Denies Pain Type: N/A Datetime: 02/22/2016 06:19 Monitor Mode: External US Datetime: 02/22/2016 06:18 Nausea/Vomiting: Denies Datetime: 02/22/2016 06:06 Maternal Assessment Level of Consciousness: Fully Conscious DTR's/Clonus: DTRs 2+; No Clonus Headache: Denies Blurred Vision: No Respiratory Effort: Unlabored Breath Sounds, Left: Clear and Equal Breath Sounds, Right: Clear and Equal Nausea/Vomiting: Present Pain Assessment Pain Scale: 0 Pain Presence: None/Denies Pain Type: N/A Datetime: 02/22/2016 06:00 Labor Evaluation Frequency: OCCASIONAL Monitor Mode: External Duration (sec)2399: 40 Quality: Mild Pattern: Normal: <= 5 Contractions in 10 Minutes Resting Tone [place]: Relaxed Heart Rate FHR Baseline Rate: 130 Monitor Mode: External US Variability: Moderate 6-25 bpm Accelerations: 15X15 Decelerations: None Category: Category I Datetime: 02/22/2016 04:45 Maternal Assessment Level of Consciousness: Fully Conscious DTR's/Clonus: DTRs 2+; No Clonus Headache: Denies Blurred Vision: Unable to assess Respiratory Effort: Unlabored Breath Sounds, Left: Clear and Equal Breath Sounds, Right: Clear and Equal Nausea/Vomiting: Denies RUQ Epigastric Pain: Denies Pain Assessment Pain Scale: 0 Pain Presence: None/Denies Pain Type: N/A Datetime: 02/22/2016 04:00 Labor Evaluation Frequency: OCCASIONAL Monitor Mode: External Duration (sec)2399: 30 Quality: Mild Pattern: Normal: <= 5 Contractions in 10 Minutes Resting Tone [place]: Relaxed Heart Rate FHR Baseline Rate: 125 Monitor Mode: External US Variability: Moderate 6-25 bpm Accelerations: 15X15 Decelerations: None Category: Category I Pain Assessment Pain Scale: 0 Pain Presence: None/Denies Pain Type: N/A Datetime: 02/22/2016 03:00 Labor Evaluation Frequency: 0 Monitor Mode: External Duration (sec)2399: 0 Resting Tone [place]: Relaxed Heart Rate FHR Baseline Rate: 130 Monitor Mode: External US Variability: Moderate 6-25 bpm Accelerations: 15X15 Decelerations: None Category: Category I Pain Assessment Pain Scale: 0 Pain Presence: None/Denies Pain Type: N/A Datetime: 02/22/2016 02:43 Maternal Assessment Level of Consciousness: Fully Conscious DTR's/Clonus: DTRs 2+; No Clonus Headache: Denies Blurred Vision: No Nausea/Vomiting: Denies RUQ Epigastric Pain: Denies Pain Assessment Pain Scale: 0 Pain Presence: None/Denies Pain Type: N/A Datetime: 02/22/2016 02:00 Labor Evaluation Frequency: 0 Monitor Mode: External Duration (sec)2399: 0 Resting Tone [place]: Relaxed Heart Rate FHR Baseline Rate: 130 Monitor Mode: External US Variability: Moderate 6-25 bpm Accelerations: 15X15 Decelerations: None Category: Category I Pain Assessment Pain Scale: 0 Pain Presence: None/Denies Pain Type: N/A Datetime: 02/22/2016 01:00 Stage of : Antepartum Labor Evaluation Frequency: x1 Monitor Mode: External Duration (sec)2399: 50 Quality: Mild Pattern: Normal: <= 5 Contractions in 10 Minutes Resting Tone [place]: Relaxed Contraction Comments: uterine irritiability noted. Heart Rate FHR Baseline Rate: 130 Monitor Mode: External US Variability: Moderate 6-25 bpm Accelerations: 15X15 Decelerations: None Category: Category I Datetime: 02/21/2016 23:51 Maternal Assessment Level of Consciousness: Fully Conscious DTR's/Clonus: DTRs 2+; No Clonus Headache: Denies Blurred Vision: Yes Respiratory Effort: Unlabored Breath Sounds, Left: Clear and Equal Breath Sounds, Right: Clear and Equal Nausea/Vomiting: Denies RUQ Epigastric Pain: Denies Labor Evaluation Frequency: 1-19 Monitor Mode: External Duration (sec)2399: 20-30 Quality: Mild Pattern: Normal: <= 5 Contractions in 10 Minutes Resting Tone [place]: Relaxed Heart Rate FHR Baseline Rate: 135 Monitor Mode: External US Variability: Moderate 6-25 bpm Accelerations: 15X15 Decelerations: None Category: Category I Pain Assessment Pain Scale: 0 Pain Presence: None/Denies Pain Type: N/A Datetime: 02/21/2016 23:00 Labor Evaluation Frequency: OCCASIONAL Monitor Mode: External Duration (sec)2399: 30-50 Quality: Mild Pattern: Normal: <= 5 Contractions in 10 Minutes Resting Tone [place]: Relaxed Heart Rate FHR Baseline Rate: 135 Monitor Mode: External US Variability: Moderate 6-25 bpm Accelerations: 15X15 Decelerations: None Category: Category I Pain Assessment Pain Scale: 0 Pain Presence: None/Denies Pain Type: N/A Datetime: 02/21/2016 21:59 Maternal Assessment Level of Consciousness: Fully Conscious Labor Evaluation Frequency: OCCASIONAL Monitor Mode: External Duration (sec)2399: 50 Quality: Mild Pattern: Normal: <= 5 Contractions in 10 Minutes Resting Tone [place]: Relaxed Heart Rate FHR Baseline Rate: 135 Monitor Mode: External US Variability: Moderate 6-25 bpm Accelerations: 15X15 Decelerations: None Category: Category I Pain Assessment Pain Scale: 0 Pain Presence: None/Denies Pain Type: N/A Datetime: 02/21/2016 20:52 Maternal Assessment Level of Consciousness: Fully Conscious DTR's/Clonus: DTRs 2+; No Clonus Headache: Denies Blurred Vision: Yes Respiratory Effort: Unlabored Breath Sounds, Left: Clear and Equal Breath Sounds, Right: Clear and Equal Nausea/Vomiting: Denies RUQ Epigastric Pain: Denies Labor Evaluation Frequency: OCCASIONAL Monitor Mode: External Duration (sec)2399: 120 Quality: Mild Pattern: Normal: <= 5 Contractions in 10 Minutes Resting Tone [place]: Relaxed Heart Rate FHR Baseline Rate: 135 Monitor Mode: External US Variability: Moderate 6-25 bpm Accelerations: 15X15 Decelerations: None Category: Category I Pain Assessment Pain Scale: 0 Pain Presence: None/Denies Pain Type: N/A Pain Goal: 0 Datetime: 02/21/2016 20:00 Labor Evaluation Frequency: OCASSIONAL Monitor Mode: External Duration (sec)2399: 40 Quality: Mild Pattern: Normal: <= 5 Contractions in 10 Minutes Resting Tone [place]: Relaxed Heart Rate FHR Baseline Rate: 135 Monitor Mode: External US Variability: Moderate 6-25 bpm Accelerations: 15X15 Decelerations: None Category: Category I Pain Assessment Pain Scale: 6 Pain Presence: Intermittent Pain Type: Contraction Pain Location: Abdomen Pain Goal: 0 Pain Relief Measures: Comfort Measures Pain Assessment Comments: ONLY WITH UC'S. Datetime: 02/21/2016 19:28 Assessment Type: Ongoing Assessment Maternal Assessment Level of Consciousness: Fully Conscious DTR's/Clonus: DTRs 2+; No Clonus Headache: Denies Blurred Vision: Yes (Annotations: PT STATES THAT THIS STARTED AFTER MAGNESIUM SULFATE WAS STARTED. PT INSTRUCTED TO CALL RN WITH ASSISTANCE TO RESTROOM.) Respiratory Effort: Unlabored Breath Sounds, Left: Clear and Equal Breath Sounds, Right: Clear and Equal Nausea/Vomiting: Denies RUQ Epigastric Pain: Denies Lower Extremities Edema: None Degree: None Upper Extremities Edema: None Degree: None Facial Edema: None Fall Risk Assessment History of Falling: (0) No Secondary Diagnosis: (0) No Ambulatory Aid: (0) Bedrest/Nurse Assist IV Therapy: (0) No Gait: (0) Normal/Bedrest/Immobile Mental Status: (0) Oriented to Own Ability Fall Score: 0 Fall Risk Score Definition: No Risk: No action required Datetime: 02/21/2016 19:25 Maternal Assessment Level of Consciousness: Fully Conscious Headache: Denies Pain Assessment Pain Scale: 0 Pain Presence: None/Denies Pain Type: N/A Datetime: 02/21/2016 17:03 Stage of : Antepartum Maternal Assessment Level of Consciousness: Fully Conscious Headache: Denies Nausea/Vomiting: Denies RUQ Epigastric Pain: Denies Labor Evaluation Frequency: 0/hr Monitor Mode: External Heart Rate FHR Baseline Rate: 135 Monitor Mode: External US Variability: Moderate 6-25 bpm Accelerations: 15X15 Decelerations: None Pain Location: Abdomen Pain Goal: 5 Vaginal Bleeding: None Datetime: 02/21/2016 16:34 Pain Presence: Constant Pain Type: Dull Pain Location: Head Pain Relief Measures: Pain Medication Given Datetime: 02/21/2016 16:03 Stage of : Antepartum Maternal Assessment Level of Consciousness: Fully Conscious DTR's/Clonus: DTRs 2+ Headache: Denies Nausea/Vomiting: Denies RUQ Epigastric Pain: Denies Labor Evaluation Frequency: irregular Monitor Mode: External Duration (sec)2399: 60 Quality: Mild Heart Rate FHR Baseline Rate: 145 Monitor Mode: External US Variability: Moderate 6-25 bpm Accelerations: 15X15 Decelerations: None Pain Location: Abdomen Pain Goal: 5 Vaginal Bleeding: None Datetime: 02/21/2016 15:35 Respiratory Effort: Unlabored Datetime: 02/21/2016 15:03 Stage of : Antepartum Maternal Assessment Level of Consciousness: Fully Conscious Headache: Denies Nausea/Vomiting: Denies RUQ Epigastric Pain: Denies Labor Evaluation Frequency: irregular Monitor Mode: External Duration (sec)2399: 60 Quality: Mild Heart Rate FHR Baseline Rate: 145 Monitor Mode: External US Variability: Moderate 6-25 bpm Accelerations: 15X15 Decelerations: None Pain Location: Abdomen Vaginal Bleeding: None Datetime: 02/21/2016 14:03 Stage of : Antepartum Maternal Assessment Level of Consciousness: Fully Conscious Headache: Denies Nausea/Vomiting: Denies RUQ Epigastric Pain: Denies Labor Evaluation Frequency: irregular Monitor Mode: External Duration (sec)2399: 60 Quality: Mild Heart Rate FHR Baseline Rate: 145 Monitor Mode: External US Variability: Moderate 6-25 bpm Decelerations: None Pain Assessment Pain Scale: 5 Pain Presence: Intermittent Pain Type: Contraction; Pressure Pain Location: Abdomen Vaginal Bleeding: None Datetime: 02/21/2016 13:03 Stage of : Antepartum Maternal Assessment Level of Consciousness: Fully Conscious Headache: Denies Nausea/Vomiting: Denies RUQ Epigastric Pain: Denies Labor Evaluation Frequency: irregular Monitor Mode: External Duration (sec)2399: 60 Quality: Mild Heart Rate FHR Baseline Rate: 145 Monitor Mode: External US Variability: Moderate 6-25 bpm Decelerations: None Pain Assessment Pain Scale: 5 Pain Presence: Intermittent Pain Type: Contraction; Pressure Pain Location: Abdomen Vaginal Bleeding: None Datetime: 02/21/2016 12:05 Stage of : Antepartum Maternal Assessment Level of Consciousness: Fully Conscious DTR's/Clonus: DTRs 2+ Headache: Denies Nausea/Vomiting: Denies RUQ Epigastric Pain: Denies Labor Evaluation Frequency: irregular Monitor Mode: External Duration (sec)2399: 60 Quality: Mild Heart Rate FHR Baseline Rate: 145 Monitor Mode: External US Variability: Moderate 6-25 bpm Decelerations: None Pain Assessment Pain Scale: 5 Pain Presence: Intermittent Pain Type: Contraction; Pressure Pain Location: Abdomen Vaginal Bleeding: None Datetime: 02/21/2016 11:49 Resting Tone [place]: Relaxed Monitor Mode: External US Pain Assessment Pain Scale: 5 Pain Presence: Intermittent Pain Type: Contraction Pain Assessment Comments: pt. states are "a little better" Datetime: 02/21/2016 11:06 Stage of : Antepartum Maternal Assessment Level of Consciousness: Fully Conscious Headache: Denies Nausea/Vomiting: Denies RUQ Epigastric Pain: Denies Labor Evaluation Frequency: 6/hr Monitor Mode: External Duration (sec)2399: 50 Quality: Mild Heart Rate FHR Baseline Rate: 145 Monitor Mode: External US Variability: Moderate 6-25 bpm Decelerations: None Pain Relief Measures: magnesium sulfate started Vaginal Bleeding: None Datetime: 02/21/2016 10:23 Stage of : Antepartum Datetime: 02/21/2016 10:04 Stage of : Antepartum Maternal Assessment Level of Consciousness: Fully Conscious DTR's/Clonus: DTRs 2+ Headache: Denies Breath Sounds, Left: Clear and Equal Breath Sounds, Right: Clear and Equal Nausea/Vomiting: Denies RUQ Epigastric Pain: Denies Labor Evaluation Frequency: 4 Monitor Mode: External Duration (sec)2399: 50 Quality: Moderate Heart Rate FHR Baseline Rate: 145 Monitor Mode: External US Variability: Moderate 6-25 bpm Decelerations: None Pain Assessment Pain Scale: 6 Pain Presence: Intermittent Pain Type: Contraction Pain Location: Abdomen Pain Relief Measures: magnesium sulfate started Membrane Status: Intact Vaginal Bleeding: None Datetime: 02/21/2016 09:42 Maternal Assessment Level of Consciousness: Fully Conscious DTR's/Clonus: DTRs 2+ Headache: Denies Blurred Vision: No Nausea/Vomiting: Denies RUQ Epigastric Pain: Denies Datetime: 02/21/2016 09:27 Pain Assessment Pain Scale: 6 Pain Presence: Intermittent Pain Type: Contraction Datetime: 02/21/2016 09:06 Pain Assessment Comments: pain not resolved Datetime: 02/21/2016 08:30 Monitor Mode: External Duration (sec)2399: irreg Quality: Mild Heart Rate FHR Baseline Rate: 145 Variability: Moderate 6-25 bpm Accelerations: 15X15 Datetime: 02/21/2016 07:45 Resting Tone [place]: Relaxed Pain Assessment Pain Scale: 6 Pain Presence: Constant Pain Type: Pressure; Ache Pain Assessment Comments: lower abdomen Datetime: 02/21/2016 07:30 Heart Rate FHR Baseline Rate: 145 Monitor Mode: External US Variability: Moderate 6-25 bpm Accelerations: 15X15 Comments: ega 29.6 Datetime: 02/21/2016 07:00 Labor Evaluation Frequency: X2 Monitor Mode: External Duration (sec)2399: 60 Quality: Mild Resting Tone [place]: Relaxed Heart Rate FHR Baseline Rate: 140 Monitor Mode: External US FHR Baseline Changes: No Baseline Change Variability: Moderate 6-25 bpm Accelerations: 15X15 Decelerations: None Category: Category I Datetime: 02/21/2016 06:00 Labor Evaluation Frequency: IRRITABL Monitor Mode: External Duration (sec)2399: 20-40 Quality: Mild Resting Tone [place]: Relaxed Heart Rate FHR Baseline Rate: 140 Monitor Mode: External US FHR Baseline Changes: No Baseline Change Variability: Moderate 6-25 bpm Accelerations: 15X15 Decelerations: None Category: Category I Datetime: 02/21/2016 05:00 Labor Evaluation Frequency: 0 Monitor Mode: External Heart Rate FHR Baseline Rate: 130 Monitor Mode: External US FHR Baseline Changes: No Baseline Change Variability: Moderate 6-25 bpm Accelerations: 15X15 Decelerations: None Category: Category I Datetime: 02/21/2016 04:00 Labor Evaluation Frequency: X4 Monitor Mode: External Duration (sec)2399: 40-80 Quality: Mild Resting Tone [place]: Relaxed Heart Rate FHR Baseline Rate: 135 Monitor Mode: External US FHR Baseline Changes: No Baseline Change Variability: Moderate 6-25 bpm Accelerations: 15X15 Decelerations: None Category: Category I Datetime: 02/21/2016 03:57 Vaginal Exam Dilatation (cms): 0.0 Effacement (%): 30 Station: -4 Exam By: VB Membrane Status: Intact Vaginal Bleeding: None Cervix, Consistency: Soft Cervix, Position: Midposition Lie 'A': Unable to Assess Datetime: 02/21/2016 03:00 Labor Evaluation Frequency: IRRITABL Monitor Mode: External Duration (sec)2399: 30-50 Quality: Mild Resting Tone [place]: Relaxed Heart Rate FHR Baseline Rate: 140 Monitor Mode: External US FHR Baseline Changes: No Baseline Change Variability: Moderate 6-25 bpm Accelerations: 15X15 Decelerations: None Category: Category I Datetime: 02/21/2016 02:00 Labor Evaluation Frequency: 0 Monitor Mode: External Heart Rate FHR Baseline Rate: 135 Monitor Mode: External US FHR Baseline Changes: No Baseline Change Variability: Moderate 6-25 bpm Accelerations: 15X15 Decelerations: None Category: Category I Datetime: 02/21/2016 01:00 Labor Evaluation Frequency: X2 Monitor Mode: External Duration (sec)2399: 30 Quality: Mild Resting Tone [place]: Relaxed Heart Rate FHR Baseline Rate: 140 Monitor Mode: External US FHR Baseline Changes: No Baseline Change Variability: Moderate 6-25 bpm Accelerations: 15X15 Decelerations: None Category: Category I Datetime: 02/21/2016 00:00 Labor Evaluation Frequency: IRRITABL Monitor Mode: External Duration (sec)2399: 40 Quality: Mild Resting Tone [place]: Relaxed Heart Rate FHR Baseline Rate: 140 Monitor Mode: External US FHR Baseline Changes: No Baseline Change Variability: Moderate 6-25 bpm Accelerations: 15X15 Decelerations: None Category: Category I Datetime: 02/20/2016 23:00 Labor Evaluation Frequency: IRRITABL Monitor Mode: External Duration (sec)2399: 30-50 Quality: Mild Resting Tone [place]: Relaxed Heart Rate FHR Baseline Rate: 140 Monitor Mode: External US FHR Baseline Changes: No Baseline Change Variability: Moderate 6-25 bpm Accelerations: 15X15 Decelerations: None Category: Category I Datetime: 02/20/2016 22:00 Labor Evaluation Frequency: 0 Monitor Mode: External Heart Rate FHR Baseline Rate: 140 Monitor Mode: External US FHR Baseline Changes: No Baseline Change Variability: Moderate 6-25 bpm Accelerations: 15X15 Decelerations: None Category: Category I Datetime: 02/20/2016 21:45 Comments: UP TO BRP W/ ASSIST Datetime: 02/20/2016 21:20 Assessment Type: Admission Assessment Vaginal Bleeding: None Maternal Assessment Level of Consciousness: Fully Conscious Headache: Denies Blurred Vision: No Respiratory Effort: Unlabored; Regular Rhythm; Equal Expansion Nausea/Vomiting: Denies RUQ Epigastric Pain: Denies Facial Edema: None Fall Risk Assessment History of Falling: (0) No Secondary Diagnosis: (0) No Ambulatory Aid: (0) Bedrest/Nurse Assist Gait: (0) Normal/Bedrest/Immobile Mental Status: (0) Oriented to Own Ability Datetime: 02/20/2016 14:28 Fall Score: 15 Fall Risk Score Definition: No Risk: No action required Datetime: 02/20/2016 13:39 EGA: 29.5
--- NOTE | 2016-03-23 03:45 | PN ---
Date/Time of Note Date/Time of Note DATE: 03/23/16 TIME: 03:28 OB Subjective Subjective Subjective 35 Year-old G [id number] with SIUP at 34 wks presents with a chief complaint of ucs. She had PTC in current approximately 4 wks ago, was admitted for close observation s/p BMZ and mag. She has been receiving her care with Dr. Segovia. She states good movement. She denies nausea, vomiting, shortness of breath, chest pain, and abdominal pain between contractions, headache, visual changes, vaginal bleeding or LOF. OB Objective Objective Objective General: Patient appears well, alert and oriented, NAD, appropriate mood and affect ABD: gravid, soft, non-tender. Back: No CVA tenderness (B/L) LE: No clubbing, cyanosis, edema, thigh or calf tenderness bilaterally FHT: 135 bpm , moderate variability with acceleration, no deceleration-category I Contractions: Q 4-5 min, no further ucs after receiving terbutaline SVE: closed/soft/ceph/intact membrane OB Assessment/Plan Other plan: 35 Year-old G [id number] with SIUP at 34 wks presents with ucs which resolved with receiving terbutaline x1 - FHR: No sign of metabolic acidosis- Category I - Continuous EFM, toco - US performed - Reactive NST - U/A with 25-50 WBC, empiric therapy with Macrobid given. Follow with u/c result - Symptoms and sign of labor, preeclampsia, kick count discussed with patient, she voiced understanding. All of her questions answered. - Patient was discharged home in stable condition with the appropriate discharge instructions provided. I would like patient to have close follow-up with her primary physician or outpatient clinic in 1-2 days or return to the ER for worsening symptoms or any other urgent concerns. JOSEY MARSHALL Mar 23, 2016 03:43
== END 2016-03-22 19:38 | disposition home or self-care (01) ==
LOC: OBT 14:02 → L-D 14:03 → OBT 19:38
PROVIDERS: ATTEND Obstetrics & Gynecology
DX: O62.9 Abnormality of forces of labor, unspecified (principal); O09.523 Supervision of elderly multigravida, third trimester; Z3A.34 34 weeks gestation of pregnancy
CPT/HCPCS: 76815; 76818; 81001; 87086; 96372; J3105; J7120; Z7500; 81003; G0463

== ENCOUNTER 2016-04-21 09:49 | Inpatient (IN) | payer OTHER ==
[~2016-04-21] VITALS: Ht 160 cm; Wt 80.0 kg
[~2016-04-21 09:49] MED LIST changes: +EPHEDrine SULFATE 50 MG/5 ML SYG ONE; +OXYTOCIN 30 UNITS/LR 500 ML BAG IV ONE
[2016-04-21 10:00] VITALS: Ht 160 cm; Wt 80.0 kg
[2016-04-21 10:01] VITALS: BP 143/79; RESP 19
--- NOTE | 2016-04-21 10:45 | RADRPT ---
PROCEDURE: US OB biophysical profile. CLINICAL INDICATION: decreased movements, labor pain TECHNIQUE: Multiple sonographic images of the pelvis were obtained. The images were reviewed on a PACS workstation. COMPARISON: 03/22/2016 FINDINGS: There is a single viable intrauterine gestation. Cardiac activity is present with 125 beats per min cristel. There is a oblique the vertex maternal right presentation. The placenta is posterior. There is no evidence of placental abruption. There is a borderline increased amount of amniotic fluid with an YOLI = 19.5 cm. Biophysical profile: movement 2/2 tone 2/2. breathing 2/2 YOLI 2/2 Total 09/28 RPTAT: AA . IMPRESSION: Normal biophysical profile. Borderline increased YOLI. . .Ian Porter MD, MD Date Time Electronically viewed and signed by .Ian Porter MD, MD on 04/21/2016 10:45 .S/
--- NOTE | 2016-04-21 11:07 | TRIAGE ---
OB Triage Datetime Report Generated by CPN: 04/21/2016 11:07 Datetime: 04/21/2016 11:00 Stage of : OB Triage Maternal Assessment Level of Consciousness: Fully Conscious DTR's/Clonus: DTRs 1+ Headache: Denies Nausea/Vomiting: Denies RUQ Epigastric Pain: Denies Labor Evaluation Frequency: IRREGULAR Monitor Mode: External Duration (sec)2399: 40-50 Quality: Mild Pattern: Normal: <= 5 Contractions in 10 Minutes Resting Tone [place]: Relaxed Heart Rate FHR Baseline Rate: 120 Monitor Mode: External US Variability: Moderate 6-25 bpm Accelerations: 15X15 Decelerations: None Pain Assessment Pain Scale: 6 Pain Presence: Constant Pain Type: Dull Pain Location: INCISIONAL PAIN Pain Goal: 3 Vaginal Exam Membrane Status: Intact Datetime: 04/21/2016 10:30 Maternal Assessment Level of Consciousness: Fully Conscious DTR's/Clonus: DTRs 1+ Headache: Denies Blurred Vision: No Nausea/Vomiting: Denies RUQ Epigastric Pain: Denies Facial Edema: None Labor Evaluation Frequency: IRREGULAR Monitor Mode: External Duration (sec)2399: 40-50 Quality: Mild Pattern: Normal: <= 5 Contractions in 10 Minutes Resting Tone [place]: Relaxed Heart Rate FHR Baseline Rate: 120 Monitor Mode: External US Variability: Moderate 6-25 bpm Accelerations: 15X15 Decelerations: None Category: Category I Vaginal Exam Membrane Status: Intact Datetime: 04/21/2016 09:55 Stage of : OB Triage Maternal Assessment Level of Consciousness: Fully Conscious DTR's/Clonus: DTRs 2+; No Clonus Headache: Denies Blurred Vision: No Respiratory Effort: Unlabored; Regular Rhythm; Equal Expansion Breath Sounds, Left: Clear and Equal Breath Sounds, Right: Clear and Equal Nausea/Vomiting: Denies RUQ Epigastric Pain: Denies Lower Extremities Edema: None Degree: None Upper Extremities Edema: None Degree: None Facial Edema: None Temperature Route: Axillary Fall Risk Assessment History of Falling: (0) No Secondary Diagnosis: (0) No Ambulatory Aid: (0) Bedrest/Nurse Assist IV Therapy: (0) No Gait: (0) Normal/Bedrest/Immobile Mental Status: (0) Oriented to Own Ability Fall Score: 0 Fall Risk Score Definition: No Risk: No action required Datetime: 04/21/2016 09:44 Time of Arrival: 04/21/2016 10:05 EGA: 38.3 Chief Complaint: PT CAME IN C/O UC'S Movement: Present Contractions: Irregular Time Contractions Began: 04/20/2016 21:00 Contractions: 15-20 MIN Rupture of Membranes: Denies Vaginal Bleeding: None Vaginal Discharge: Denies Recent Sexual Intercouse: Denies Abdominal Trauma: Not Applicable Patient Complaints: Contractions Additional Patient Complaints: NONE Provider Notified: PAMELLA Initial Plan: MONITOR AND BPP Datetime: 03/22/2016 14:15 EGA: 34.1 Datetime: 02/23/2016 08:20 Fall Score: 0 Fall Risk Score Definition: No Risk: No action required Datetime: 02/22/2016 19:42 Fall Score: 0 Fall Risk Score Definition: No Risk: No action required Datetime: 02/22/2016 07:43 Fall Score: 0 Fall Risk Score Definition: No Risk: No action required Datetime: 02/21/2016 19:28 Fall Score: 0 Fall Risk Score Definition: No Risk: No action required Datetime: 02/20/2016 14:28 Fall Score: 15 Fall Risk Score Definition: No Risk: No action required Datetime: 02/20/2016 13:39 EGA: 29.5
[2016-04-21 11:58] LABS: ADD SCAN DIFF NO
[2016-04-21] MEDS ORDERED: OXYTOCIN 30 UNITS/LR 500 ML IV PRN ×2 (12:00→21:30)
[2016-04-21] MEDS ORDERED: MISOPROSTOL 200 MCG TAB PR PRN ×2 (12:00→21:30)
[2016-04-21] MEDS ORDERED: AMPICILLIN 2 GM/NS (PMX) 100 ML IV SCH (12:00)
[2016-04-21] MEDS ORDERED: CARBOPROST 250 MCG INJ IM PRN ×2 (12:00→21:30)
[2016-04-21] MEDS ORDERED: OXYTOCIN 30 UNITS/LR 500 ML IV SCH (12:00)
[2016-04-21] MEDS ORDERED: CEFAZOLIN 2 GM/50 ML (PMX) 50 ML IV SCH (12:00)
[2016-04-21] MEDS ORDERED: METHYLERGONOVINE 0.2 MG INJ IM PRN ×2 (12:00→21:30)
[2016-04-21 12:08] LABS: BASOPHILS % 0.2 % (0.0-2.0); EOSINOPHILS # 0.1 10^3/ul (0.0-0.5); EOSINOPHILS % 0.6 % (0.0-7.0); HEMOGLOBIN 12.8 g/dl (12.0-16.0); LYMPHOCYTES # 1.8 10^3/ul (0.8-2.9); LYMPHOCYTES % 22.7 % (15.0-51.0); MEAN CORPUSCULAR HEMOGLOBIN 32.1 pg (29.0-33.0); MEAN CORPUSCULAR HGB CONC 33.7 g/dl (32.0-37.0); MEAN CORPUSCULAR VOLUME 95.2 fl (82.0-101.0); MONOCYTE # 0.5 10^3/ul (0.3-0.9); MONOCYTES % 6.2 % (0.0-11.0); NEUTROPHIL # 5.6 10^3/ul (1.6-7.5); NEUTROPHILS % 69.3 % (39.0-77.0); PLATELET COUNT 236 10^3/UL (140-415); RED BLOOD COUNT 3.99 10^6/ul (4.20-5.40); RED CELL DISTRIBUTION WIDTH 12.8 % (11.5-14.5); WHITE BLOOD COUNT 8.1 10^3/ul (4.8-10.8)
[2016-04-21] MEDS: LACTATED RINGER'S 1,000 ML IV SCH ×2 (12:25→19:42)
[2016-04-21 12:30] LABS: INR 0.86; PROTIME 11.7 Sec (12.2-14.2); PT RATIO 0.9
[2016-04-21] MEDS ORDERED: FENTAnyl 50 MCG/ML VIAL ONE (16:21)
[2016-04-21] MEDS ORDERED: morphine SULFATE/PF (10 MG/10 ML) INJ ONE (16:21)
[2016-04-21] MEDS ORDERED: PHENYLephrine (100 MCG/ML) 5ML SYG ONE ×3 (16:21→16:56)
[2016-04-21] MEDS ORDERED: ONDANSETRON 4 MG INJ ONE (16:48)
[2016-04-21] MEDS ORDERED: DEXAMETHASONE 4 MG/ML 1 ML INJ ONE (16:49)
[2016-04-21] MEDS ORDERED: DIPHENHYDRAMINE 50 MG INJ ONE (17:44)
[2016-04-21] MEDS ORDERED: NALOXONE (0.4 MG/ML) INJ IV PRN (18:00)
[2016-04-21] MEDS ORDERED: DIPHENHYDRAMINE 50 MG INJ IV PRN (18:00)
[2016-04-21] MEDS ORDERED: HYDROmorphONE 1 MG/ML SYG IV PRN ×2 (18:00)
[2016-04-21] MEDS ORDERED: PROCHLORPERAZINE 10 MG INJ IV PRN (18:00)
[2016-04-21] MEDS ORDERED: ZOLPIDEM 5 MG TAB PO PRN (18:00)
[2016-04-21] MEDS ORDERED: ONDANSETRON 4 MG INJ IV PRN (18:00)
--- NOTE | 2016-04-21 18:08 | HP ---
Date/Time of Note Date/Time of Note DATE: 04/21/16 TIME: 17:56 OB - History Hx of Present Free Text/Dictation This is a 35 years old female 3 para with a EDC of May 02, 2006 history of 2 previous admitted to [facility] in active labor with contractions every 3-4 minutes with sensation of incisional pain she has signed consent and requested bilateral tubal ligation at the time of section This patient has been under the care of the [facility] and according to her limited visit to the clinic and information available her was not complicated with gestational diabetes or -induced 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12 history of 2 previous section no other hospitalization for any surgical or medical condition Allergy denies allergy to any known medication Social habit denies a smoking or drinking Family history unremarkable Review of system within normal Physical examination 5 feet 380 kg Temperature 98.4 pulse of 88 respiration 20 blood pressure 125/72 Head ears nose and throat negative Neck, supple no thyromegaly Lungs, clear to P&A Heart, normal sinus rhythm no murmur, Abdomen fundal height measures 87 cm from symphysis pubis heart category 1 contraction 3-5 minute with incisional pain Pelvic examination, deferred Extremities, no edema no varicosities Impression intrauterine at 38 weeks and 3 days 2 previous section in active labor Plan of treatment repeat section bilateral tubal ligation Patient is aware of the complication of surgery including bowel and bladder injury wound infection wound hematoma hemorrhage, future failure to conceive failure rate of tubal ligation and increased risk of ectopic , she is willing to go ahead with this procedure Estimated Due Date: May 02, 2016 : 3 Para: 2 Care: Limited Care Ultrasounds: Other (Unknown) Obstetrical Complications: Other (Unknown) Medical Complications: None Past Family/Social History * Past Medical, Surgical, Family and Obstetric Histories reviewed from chart. Rubella: immune RPR/VDRL: Negative GBS Status: Negative HBsAG: Negative OB Admission Exam Vital Signs Vital Signs Vital Signs Date Time Temp Pulse Resp B/P Pulse Ox O2 Delivery O2 Flow Rate FiO2 04/21/16 10:01 98.2 19 143/79 99 Room Air Physical Exam HEENT: WNL Heart: Rhythm Normal Lungs: Clear, Equal Abdomen: WNL Extremities: Normal Reflexes: Normal Cervical Dilatation: None Effacement: 25% Station: -2 Membranes: Intact Heart Rate: 120's Accelerations: Accelerations Present Decelerations: No Decelerations Varibility: Moderate Contractions on Admission: 6-10 Minutes Apart Intensity: Moderate Last 72 hours Lab Results CBC & BMP 04/21/16 11:35 KASANDRA CAN MD Apr 21, 2016 18:06
--- NOTE | 2016-04-21 18:35 | OPR ---
DATE OF OPERATION: 04/21/2016 PREOPERATIVE DIAGNOSES: 1. Intrauterine at 38 weeks and 3 days. 2. History of 2 previous sections in active labor. 3. Request for voluntary sterilization, bilateral tubal ligation. POSTOPERATIVE DIAGNOSES: 1. Intrauterine at 38 weeks and 3 days. 2. History of 2 previous sections in active labor. 3. Request for voluntary sterilization, bilateral tubal ligation. OPERATION PERFORMED: Repeat transverse low cervical section, bilateral tubal ligation. SURGEON: Kasandra Segovia MD PRICING DIRECTOR: Redd Gutierrez MD ANESTHESIA: Spinal. ANESTHESIOLOGIST: Dr. Noel FINDINGS: Live baby boy with the 8 and 9. DETAILS OF THE PROCEDURE: Under satisfactory spinal anesthesia, the patient was prepped and draped and placed in supine position, tilted to the left. Pfannenstiel incision was made, carried through the subcutaneous tissue. Bleeders brought under control with electrocautery. Fascia incised to the length of the incision. Rectus muscle divided in midline. Peritoneum exposed, entered through a t ransverse incision. Upon entry into the abdominal cavity, it was noted there was a tremendous amoun t of adhesions between the anterior uterine wall, the right round ligament, anterior abdominal wall, and the omentum. All these scars and adhesions taken down by the sharp and blunt dissection, and f inally the lower segment of the uterus was freed from the adhesions. Bladder flap was developed. T ransverse incision was made in the lower segment of the uterus. Amniotic sac ruptured. Clear amnio tic fluid noted. Live baby boy was delivered from unengaged vertex. Nasal oropharyngeal suction wa s performed. Cord was clamped after stopped pulsation. Baby handed to the team for immedi ate attention. The patient received 20 units of Pitocin. Placenta delivered manually intact. Uter ine cavity cleaned with wet sponge and drainage established. Uterus closed in 2 layers using Monocr yl #1 in continuous fashion. Bilateral tubal ligation performed by identifying the ampullar section of the right fallopian tube, which was grasped by a [place]. A loop was made. Suture material use d #0 plain catgut, which was reinforced with the same suture material. The top of the loop 3/4 of i nch was excised and the cut end of the tube was cauterized and the specimen submitted for the pathol ogy. The same procedure performed for the opposite side, which in that specimen fimbria was include d. Peritoneal cavity irrigated with warm saline. Sponge, needle, and instrument reported to be cor rect. Abdominal peritoneum closed with 2-0 chromic catgut continuously. Rectus muscle approximated with several interrupted 2-0 chromic catgut. Fascia closed with #1 PDS in a continuous fashion. S ubcutaneous tissue approximated with 2-0 chromic catgut. Skin closed with danya. Estimated blood loss 600 to 700 mL. Urine bag contained 250 mL of clear urine. The patient tolerated procedure we ll, transferred to recovery room in a good condition. Dictated By: KASANDRA WILLS/MONTSERRAT Conf#: [id number] DID#: [id number]
[2016-04-21] MEDS: KETOROLAC 30 MG INJ IV PRN (19:46)
[2016-04-21 21:00] VITALS: BP 93/53; PULSE 64; RESP 18
[2016-04-21] MEDS ORDERED: ACETAMINOPHEN/CODEINE #3 TAB PO PRN ×2 (21:30)
[2016-04-21] MEDS ORDERED: LANOLIN 7 GM TUBE TOP PRN (21:30)
[2016-04-21] MEDS ORDERED: CEFAZOLIN 1 GM/50 ML (PMX) 50 ML IVPB SCH (21:30)
[2016-04-21] MEDS ORDERED: OXYCODONE/ACETAMINOPHEN (5/325) TAB PO PRN (21:30)
[2016-04-21] MEDS: OXYTOCIN 30 UNITS/LR 500 ML IV SCH (21:58)
[2016-04-22 00:30] VITALS: BP 90/45; PULSE 66; RESP 16
[2016-04-22] MEDS: OXYTOCIN 30 UNITS/LR 500 ML IV SCH ×3 (00:45→08:58)
[2016-04-22 04:15] VITALS: BP 90/56; PULSE 76; RESP 16
[2016-04-22 08:30] VITALS: BP 83/46; PULSE 67; RESP 18
[2016-04-22] MEDS ORDERED: LACTATED RINGER'S 1,000 ML IV SCH (09:00)
[2016-04-22 09:15] LABS: ADD SCAN DIFF NO
[2016-04-22 09:33] LABS: BASOPHILS % 0.1 % (0.0-2.0); EOSINOPHILS % 0.1 % (0.0-7.0); HEMATOCRIT 31.3 % (37.0-47.0); HEMOGLOBIN 10.7 g/dl (12.0-16.0); LYMPHOCYTES # 1.9 10^3/ul (0.8-2.9); LYMPHOCYTES % 13.8 % (15.0-51.0); MEAN CORPUSCULAR HEMOGLOBIN 31.9 pg (29.0-33.0); MEAN CORPUSCULAR HGB CONC 34.2 g/dl (32.0-37.0); MEAN CORPUSCULAR VOLUME 93.4 fl (82.0-101.0); MONOCYTE # 0.6 10^3/ul (0.3-0.9); MONOCYTES % 4.8 % (0.0-11.0); NEUTROPHIL # 10.8 10^3/ul (1.6-7.5); NEUTROPHILS % 80.7 % (39.0-77.0); PLATELET COUNT 202 10^3/UL (140-415); RED BLOOD COUNT 3.35 10^6/ul (4.20-5.40); RED CELL DISTRIBUTION WIDTH 12.6 % (11.5-14.5); WHITE BLOOD COUNT 13.4 10^3/ul (4.8-10.8)
[2016-04-22] MEDS: KETOROLAC 30 MG INJ IV PRN (10:22)
[2016-04-22] MEDS ORDERED: INFLUENZA VIRUS VACCINE 0.5 ML (DISPENSING) IM* ONE (11:00)
[2016-04-22 11:45] VITALS: BP 85/48; PULSE 70; RESP 16
--- NOTE | 2016-04-22 12:55 | PN ---
Date/Time of Note Date/Time of Note DATE: 04/22/16 TIME: 12:52 OB Subjective Subjective Subjective Post day Vital signs stable, abdomen soft bowel sounds. Present incision dry lochia normal extremity normal ambulating, minimum incisional pain, extremity normal KASANDRA CAN MD Apr 22, 2016 12:55
[2016-04-22 16:30] VITALS: BP 95/51; PULSE 100; RESP 17
[2016-04-22] MEDS: IBUPROFEN 600 MG TAB PO SCH ×2 (17:14→23:35)
[2016-04-22 20:00] VITALS: BP 119/68; PULSE 95; RESP 19
[2016-04-22] MEDS: SENNA/DOCUSATE NA (8.6MG/50MG) TAB PO SCH (20:08)
[2016-04-22] MEDS: OXYCODONE/ACETAMINOPHEN (5/325) TAB PO PRN (20:09)
[2016-04-23 04:00] VITALS: BP 82/52; PULSE 77; RESP 18
[2016-04-23] MEDS: IBUPROFEN 600 MG TAB PO SCH ×3 (05:39→17:30)
[2016-04-23 08:10] VITALS: BP 107/61; PULSE 85; RESP 16
[2016-04-23] MEDS ORDERED: INFLUENZA VIRUS VACCINE 0.5 ML (DISPENSING) IM* ONE (09:00)
[2016-04-23] MEDS: SENNA/DOCUSATE NA (8.6MG/50MG) TAB PO SCH ×2 (09:36→20:58)
--- NOTE | 2016-04-23 09:50 | PN ---
Date/Time of Note Date/Time of Note DATE: 04/23/16 TIME: 09:49 OB Subjective Subjective Subjective Post day 2 Afebrile vital signs stable, abdomen soft, bowel sounds present, no bowel movements, extremity normal, lochia normal, plan of discharge home a.m. discussed KASANDRA CAN MD Apr 23, 2016 09:50
[2016-04-23] MEDS ORDERED: NA PHOSPHATE/BIPHOS 133 ML ENEMA PR ONE (10:00)
[2016-04-23 16:00] VITALS: BP 110/79; PULSE 90; RESP 19
[2016-04-23 20:00] VITALS: BP 102/70; PULSE 105; RESP 20
[2016-04-24] MEDS: IBUPROFEN 600 MG TAB PO SCH ×3 (00:10→11:25)
[2016-04-24] MEDS: OXYCODONE/ACETAMINOPHEN (5/325) TAB PO PRN (01:23)
[2016-04-24 04:00] VITALS: BP 94/56; PULSE 70; RESP 19
[2016-04-24 07:30] VITALS: BP 112/86; PULSE 98; RESP 16
[2016-04-24] MEDS: SENNA/DOCUSATE NA (8.6MG/50MG) TAB PO SCH (08:56)
[2016-04-24] MEDS ORDERED: DIPHTH/TET/ACEL PERTUSS (ADULT) 0.5 ML VIAL IM* ONE (09:00)
--- NOTE | 2016-04-24 09:19 | PD.PPDC ---
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 Patient Condition: Good Diet Diet: Resume Regular Diet Activity/Restrictions Activity: Normal Activity May Shower Restrictions: No Exercising No Lifting No Driving No Sexual Activity Nothing in the Vagina No [place] No Tampons, douche Wound/Drain Care Instructions Wound/Drain Care Instructions: Remove Steri Strips in 1 week Follow-up Follow-up with Physician: 5, Day/Days Provider Information: Appointment clinic in 4-5 days to ADRIENNE hagan Return to clinic for MACHINE [facility] Instructions: Fever greater than 101 Worsening abdominal pain Excessive Vaginal Bleeding More than 2 pads per hour Unable to tolerate diet OB Instructions: Breast Tenderness Depression Blurried Vision Headache Surgical Instructions: Incisional Drainage Incisional Redness KASANDRA CAN MD Apr 24, 2016 09:19
--- NOTE | 2016-04-24 09:24 | DS ---
Date/Time of Note Date/Time of Note DATE: 04/24/16 TIME: 09:20 Obstetrical Discharge Record Final Diagnosis Final Diagnosis: Term delivered Section Section: Repeat Condition on Discharge Physical Assessment Last Vitals: Post day 3 Afebrile vital sign stable, incision dry, abdomen soft, sounds present, patient had normal bowel movement, discharged home with the follow-up instructions to be seen at the clinic in 4 days to DC danya patient received a prescription of analgesics recommended to continue multivitamin and iron supplement post C- section wound care instructions Given. Voiding: Yes Bowel Movement: Yes Breast: Filling Fundus: Firm Abdomen and Incision: Dry, healing well Calf Tenderness: No Patient Condition: Good KASANDRA CAN MD Apr 24, 2016 09:24
== END 2016-04-24 12:40 | disposition home or self-care (01) | DRG 766 ==
LOC: OBT 09:49 → L-D 09:50 → OBT 10:15 → L-D 11:30 → PP1 20:53
PROVIDERS: ADMIT Obstetrics & Gynecology; ATTEND Obstetrics & Gynecology
PROC: 0UL70ZZ Occlusion of Bilateral Fallopian Tubes, Open Approach (ICD-10-PCS; 2016-04-21)
PROC: 10D00Z1 Extraction of Products of Conception, Low, Open Approach (ICD-10-PCS; principal; 2016-04-21 14:00)
PROC: 3E00X4Z Introduction of Serum, Toxoid and Vaccine into Skin and Mucous Membranes, External Approach (ICD-10-PCS; 2016-04-24)
DX: O34.211 Maternal care for low transverse scar from previous cesarean delivery (principal); O24.429 Gestational diabetes mellitus in childbirth, unspecified control; Z30.2 Encounter for sterilization; Z23 Encounter for immunization; Z3A.38 38 weeks gestation of pregnancy; Z37.0 Single live birth
CPT/HCPCS: 76818; 82947; 85025; 85610; 85730; 86592; 86850; 86900; 86901; 88302; 90686; 90715; 94760; 99464; G0463; J0690; J1100; J1200; J1885; J2274; J2370; J2405; J2590; J3010; J7120